=== PATIENT | male | born 1965 | race Caucasian/White ===

== ENCOUNTER 2025-01-15 00:32 | Outpatient (CLI) | payer OTHER, SELFPAY ==
[2025-01-15] MEDS: Inhaler, Assist Device 1 EACH MC (09:18)
[2025-01-15] MEDS: Levalbuterol HFA 15 GM INH 4 PUFF IH (09:18)
--- NOTE | 2025-01-15 13:28 | W.PFT ---
Date of service: 01/15/25 Time of Service: 08:02 Pulmonary Function Test Result Indications: COPD Impression 1. Good patient effort was noted. ATS standards for reproducibility were met. 2. Spirometry showed severe obstructive lung disease with an FEV1 of 31% (1.11 L) 3. Following the administration of a bronchodilator there was a significant response 4. TLC and RV were elevated, consistent with air trapping 5. DLCO was 39%, consistent with a severe defect in alveolar gas exchange
== END 2025-01-15 00:33 | disposition home or self-care (01) ==
LOC: RT 00:32
PROVIDERS: PCP Nurse Practitioner Adult Health; Visit Provider Physician Assistant Surgical
DX: J44.9 Chronic obstructive pulmonary disease, unspecified (principal)
CPT/HCPCS: 94060; 94726; 94729

== ENCOUNTER 2025-01-26 13:56 | Outpatient (REF) | payer OTHER, SELFPAY ==
[2025-01-26 10:49] LABS: Abs Immature Grans 0.02 10^3/uL (0.0-0.06); HCT 48.3 % (40.0-50.0); HGB 15.8 g/dL (13.5-17.5); Immature Grans % 0.3 %; MCH 29.9 pg (27.0-33.0); MCHC 32.7 % (32.0-36.0); MCV 92 fL (80-95); MPV 11.6 fL (8.0-11.0); Platelet Count 214 10^3/uL (130-400); RBC 5.28 10^6/uL (4.36-5.78); RDW 12.2 % (11.8-14.1); RDW-SD 41.3 fL; WBC 7.59 10^3/uL (4.4-10.8)
== END 2025-01-26 13:57 | disposition home or self-care (01) ==
LOC: LBN 13:56
PROVIDERS: PCP Nurse Practitioner Adult Health; Visit Provider Internal Medicine Pulmonary Disease
DX: J44.9 Chronic obstructive pulmonary disease, unspecified (principal)
CPT/HCPCS: 85025